=== PATIENT | male | born 1975 | race African-American/Black ===

== ENCOUNTER 2017-08-23 14:56 | Emergency (ER) | payer MEDICAID ==
[~2017-08-23] VITALS: Ht 177.8 cm; Wt 91.0 kg
[2017-08-23 14:59] VITALS: BP 132/92
== END 2017-08-23 20:00 | disposition left against medical advice (07) ==
LOC: ER 15:06
DX: Z53.21 Procedure and treatment not carried out due to patient leaving prior to being seen by health care provider (principal)

== ENCOUNTER 2017-08-24 08:35 | Emergency (ER) | payer MEDICAID ==
[~2017-08-24] VITALS: Ht 182.9 cm; Wt 91.0 kg
[2017-08-24] MEDS ORDERED: BACITRACIN ZINC OINT UDPKT TOP ONE ×2 (11:15→11:30)
[2017-08-24] MEDS ORDERED: KETOROLAC 60MG/2ML VIAL IM ONE (11:30)
[2017-08-24 12:00] VITALS: BP 144/69
== END 2017-08-24 12:16 | disposition home or self-care (01) ==
LOC: ER 08:42
DX: T22.10XA Burn of first degree of shoulder and upper limb, except wrist and hand, unspecified site, initial encounter (principal); T23.202A Burn of second degree of left hand, unspecified site, initial encounter; X12.XXXA Contact with other hot fluids, initial encounter; Y93.89 Activity, other specified; Y92.89 Other specified places as the place of occurrence of the external cause; Y99.8 Other external cause status
CPT/HCPCS: 10140; 96372; 99284; J1885